=== PATIENT | male | born 1990 ===

== ENCOUNTER 2019-10-18 08:12 | Day surgery (SDC) | payer OTHER ==
[~2019-10-18 08:12] MED LIST: Bupivacaine 0.5%/EPINEPHrine 1:200,000 10 ML SDV ONE; Clindamycin Phosphate in D5W 900 MG in Premix Bag 1 BAG IV SCH; Lactated Ringers 1,000 ML IV SCH
--- NOTE | 2019-10-18 09:07 | PCM.PREANE ---
Preanesthetic Assessment - Anesthesia/Transfusion/Family Hx Anesthesia History: Prior Anesthesia Without Reaction Family History of Anesthesia Reaction: No Transfusion History: No Prior Transfusion(s) - Review of Systems General: No Symptoms Pulmonary: No Symptoms Cardiovascular: No Symptoms Gastrointestinal: No Symptoms Neurological: No Symptoms Other: Reports: None - Physical Assessment NPO Status Date: 10/17/19 NPO Status Time: 23:00 Vital Signs: Last Vital Signs Temp 98.1 F 10/18/19 08:30 Pulse 72 10/18/19 08:30 Resp 16 10/18/19 08:30 BP 140/89 10/18/19 08:30 Pulse Ox 97 10/18/19 08:30 Height: 6 ft 2 in Weight: 115.666 kg ASA Class: 1 Mental Status: Alert & Oriented x3 Airway Class: Mallampati = 2 ROM/Head Extension: Full Lungs: Clear to Auscultation, Normal Respiratory Effort Cardiovascular: Regular Rate, Regular Rhythm - Allergies Allergies/Adverse Reactions: Allergies Allergy/AdvReac Type Severity Reaction Status Date / Time Penicillins Allergy Hives Verified 10/17/19 13:50 - Blood Blood Available: No - Anesthesia Plan Pre-Op Medication Ordered: None - Acknowledgements Anesthesia Type Planned: Spinal Pt an Appropriate Candidate for the Planned Anesthesia: Yes Alternatives and Risks of Anesthesia Discussed w Pt/Guardian: Yes Pt/Guardian Understands and Agrees with Anesthesia Plan: Yes Additional Comments: PMH: none PLAN: spinal, prone positioning PreAnesthesia Questionnaire Endocrine/Metabolic History: Reports: Obesity/BMI 30+ - Past Surgical History Head Surgeries/Procedures: Reports: None - SUBSTANCE USE Smoking Status *Q: Former Smoker Tobacco Use Within Last Twelve Months: Cigarettes Recreational Drug Use History: No - HOME MEDS Home Medications: Home Meds . [No Known Home Meds] 10/17/19 [History] - CURRENT (IN HOUSE) MEDS Current Meds: Current Medications Clindamycin Phosphate 900 mg/ (Premix) 50 mls @ 89.286 mls/hr IV ONCALL DES Lactated Ringer's (Ringers, Lactated) 1,000 mls @ 100 mls/hr IV ASDIRECTED DES Last Admin: 10/18/19 08:55 Dose: 100 mls/hr Discontinued Medications Bupivacaine HCl/Epinephrine Bitart (Marcaine 0.5%/Epinephrine 1:200,000) Confirm Administered Dose 10 ml .ROUTE .STVANDOLAY-MED ONE Stop: 10/18/19 07:37
[2019-10-18] MEDS ORDERED: Propofol 200 MG/20 ML SDV ONE ×3 (11:14→13:49)
[2019-10-18] MEDS ORDERED: Midazolam 1 MG/ML 2 ML SDV ONE ×2 (11:15→11:45)
[2019-10-18] MEDS ORDERED: Ondansetron 4 MG/2 ML SDV ONE ×2 (11:45→13:07)
[2019-10-18] MEDS ORDERED: fentaNYL 100 MCG/2 ML SDV ONE ×2 (11:45→13:16)
[2019-10-18] MEDS ORDERED: Ketorolac 30 MG/ML SDV ONE (13:07)
[2019-10-18] MEDS ORDERED: Morphine 10 MG/ML Syringe ONE (14:46)
--- NOTE | 2019-10-18 14:58 | PCM.OPNOTE ---
- General Post-Op/Procedure Note Date of Surgery/Procedure: 10/18/19 Operative Procedure(s): left achilles tendon repair with allograft Pre Op Diagnosis: left achilles tendon rupture Post-Op Diagnosis: Same Anesthesia Technique: Combo Spinal/Epidural, Moderate Sedation Primary Surgeon: Steve Lennon Firer Kiln: Corry Webb EBL in mLs: 25 Complications: None Condition: Good
--- NOTE | 2019-10-18 16:23 | PCM.POSTAN ---
POST ANESTHESIA ASSESSMENT - MENTAL STATUS Mental Status: Alert, Oriented - VITAL SIGNS Vital Signs: Last Vital Signs Temp 97.2 F 10/18/19 14:58 Pulse 46 L 10/18/19 15:28 Resp 8 L 10/18/19 15:28 BP 118/70 10/18/19 15:28 Pulse Ox 100 10/18/19 15:28 - RESPIRATORY Respiratory Status: Respiratory Rate WNL, Airway Patent, O2 Saturation Stable - CARDIOVASCULAR CV Status: Pulse Rate WNL, Blood Pressure Stable - GASTROINTESTINAL GI Status: No Symptoms - POST OP HYDRATION Hydration Status: Adequate & Stable
--- NOTE | 2019-10-18 16:23 | PCM48HPAN ---
Post Anesthesia Note - EVALUATION WITHIN 48HRS OF ANESTHETIC Vital Signs in Normal Range: Yes Patient Participated in Evaluation: Yes Respiratory Function Stable: Yes Airway Patent: Yes Cardiovascular Function Stable: Yes Hydration Status Stable: Yes Pain Control Satisfactory: Yes Nausea and Vomiting Control Satisfactory: Yes Mental Status Recovered: Yes Vital Signs: Last Vital Signs Temp 97.2 F 10/18/19 14:58 Pulse 46 L 10/18/19 15:28 Resp 8 L 10/18/19 15:28 BP 118/70 10/18/19 15:28 Pulse Ox 100 10/18/19 15:28
--- NOTE | 2019-10-18 16:43 | OR ---
SURGEON: Steve Lennon DATE OF PROCEDURE: 10/18/2019 PREOPERATIVE DIAGNOSIS: Left Achilles tendon rupture. POSTOPERATIVE DIAGNOSIS: Left Achilles tendon rupture. PROCEDURE: Left Achilles tendon repair using allograft. PRIMARY SURGEON: Steve Lennon DO IRONWORKER FOREMAN: ANNIE Damon ROLE OF IRONWORKER FOREMAN: Nurse practitioner, ANNIE Damon, played an essential role in assisting in this case, helping to position the patient, retract structures as needed, as well as suturing and cutting sutures as indicated. Her presence improved patient's safety and decreased operative time. ANESTHESIA: Spinal plus moderate sedation. FLUID: Lactated Ringer's solution. ESTIMATED BLOOD LOSS: 25 mL. COMPLICATIONS: None. SPECIMEN: None. DISCHARGE DISPOSITION: Stable to PACU. HISTORY AND INDICATIONS FOR THE PROCEDURE: The patient was seen preoperatively in the clinic in a bit about just over 2 weeks since he was injured and had an MRI indicating an area of Achilles rupture measuring over 11 cm. Risks and goals of the procedure were explained to the patient. Informed consent was obtained. DETAILS OF PROCEDURE: The patient was seen preoperatively by myself and the Anesthesia staff in the preoperative holding area where the operative site was marked. He was brought to the operative suite by Anesthesia staff where spinal sedation plus moderate sedation were administered. He was placed in the supine position and all extremities were found to be well padded. The left lower extremity was then prepped and draped in a sterile manner. Time-out was called identifying the correct patient, the correct procedure, the correct site, and that antibiotics had been given within appropriate period of time. I could feel the divot where it was most painful to the patient, which I had marked preoperatively. I then made an incision over this area. This was more of the musculotendinous junction between the gastrocnemius and the Achilles with significant muscle belly, so it was more of the fascia over the gastrocnemius. I then carried this distally, approximately 3-4 cm proximal to the insertion of the calcaneus. About 5 cm proximal to the calcaneus, there was significant rupture present. I had very carefully made an incision to the paratenon, identified neurovascular structures, and protected them with a vessel loop. I then used #2 FiberWire and using a Krackow method reapproximated the distal rupture. I then had some Achilles allograft, which I had cut from the calcaneus bone on the allograft, and I had spread that out and thinned out just a little bit so I would have a good repair, but not so significant that I could not close the paratenon. I then used the #2 FiberWire and using a running suture oversewed this allograft over the Achilles from proximal over the gastrocnemius musculotendinous junction of the Achilles all the way down to the distal extent of my incision. I then used Thomas scissors and removed any extra Achilles tendon. After that had been performed, I then irrigated with Betadine infused irrigation and then closed with three simple interrupted sutures with 2-0 Vicryl the paratenon to get an idea of how this would close. I then used #2 FiberWire and closed the paratenon in a running manner. I was able to get this closed all the way. I then irrigated again with Betadine infused irrigation. We then applied 2-0 Vicryl interrupted suture subcutaneously followed by skin arcelia followed by Betadine- soaked Adaptic sponges and an Desmond wrap and then he was placed into a boot. He will be nonweightbearing for 2 weeks and then follow up in clinic for staple removal. [id number] / MODL /[id number]
== END 2019-10-18 18:10 | disposition home or self-care (01) ==
LOC: MW.SDS 08:12
PROVIDERS: ATTEND Orthopaedic Surgery
DX: S86.012A Strain of left Achilles tendon, initial encounter (principal); E66.9 Obesity, unspecified; Z87.891 Personal history of nicotine dependence; Z68.32 Body mass index [BMI] 32.0-32.9, adult; Z88.0 Allergy status to penicillin; X58.XXXA Exposure to other specified factors, initial encounter
CPT/HCPCS: J0131; J1885; J2250; J2270; J2405; J2704; J3010; J3490; J7120